=== PATIENT | male | born 1960 | race Caucasian/White ===

== ENCOUNTER 2017-02-19 20:12 | Emergency (ER) | payer OTHER | END 2017-02-20 00:14 | disposition home or self-care (01) | LOC: ER 20:12 | DX: K57.32 Diverticulitis of large intestine without perforation or abscess without bleeding (principal); F32.9 Major depressive disorder, single episode, unspecified; F41.9 Anxiety disorder, unspecified; I48.91 Unspecified atrial fibrillation; I10 Essential (primary) hypertension; E11.9 Type 2 diabetes mellitus without complications; E66.9 Obesity, unspecified; Z96.642 Presence of left artificial hip joint | CPT/HCPCS: 36415; 96361; 96374; 96375 ==

== ENCOUNTER 2017-04-17 05:42 | Emergency (ER) | payer OTHER | END 2017-04-17 07:55 | disposition home or self-care (01) | LOC: ER 05:42 | DX: K57.92 Diverticulitis of intestine, part unspecified, without perforation or abscess without bleeding (principal); I10 Essential (primary) hypertension; Z96.643 Presence of artificial hip joint, bilateral; Z79.899 Other long term (current) drug therapy | CPT/HCPCS: 36415; 96374; 96375; J1885 ==